=== PATIENT | female | born 1985 | race Caucasian/White ===

== ENCOUNTER 2018-08-26 13:30 | Outpatient (CLI) | payer BC ==
--- NOTE | 2018-08-26 15:10 | ULT ---
LEFT BREAST ULTRASOUND: Date: 08/26/18 HISTORY: Palpable abnormality at the 5 o'clock position of the left breast. FINDINGS: Sonographic evaluation of the left breast from the 4 to the 6 o'clock positions demonstrates multiple cysts, the largest is a palpable one measuring 6.0 mm at the 5 o'clock position. IMPRESSION: BIRADS Category 2 - Benign findings. Return to age-appropriate mammographic screening based on risk f actors. POS: [facility]
== END 2018-08-26 13:31 | disposition home or self-care (01) ==
LOC: BICULT 13:30
PROVIDERS: ATTEND Advanced Practice Midwife
DX: N63.22 Unspecified lump in the left breast, upper inner quadrant (principal)